=== PATIENT | female | born 1995 | race Caucasian/White ===

== ENCOUNTER 2017-06-07 11:50 | Emergency (ER) | payer OTHER, SELFPAY ==
[2017-06-07 14:09] VITALS: O2SAT 96
[2017-06-07] MEDS ORDERED: MOTRIN 600 MG PO ONE (14:12)
[2017-06-07] MEDS ORDERED: MOTRIN 600 MG ONE (14:13)
--- NOTE | 2017-06-07 14:19 | ERPHSYRPT ---
- History of Present Illness Time Seen by Provider: 06/07/17 14:09 Source: patient Physician History: CC: left ankle injury Hx: 21 y/o patient of Dr Barreto stepped on a child's toy at 5:30 AM today. Twisted left ankle and heard 2 pops. Pain in left foot and ankle so came to ER. No other injuries. No N/T/W. States not as has implant control. Pain moderate. Aching and sharp in nature. Allergies/Adverse Reactions: amoxicillin Allergy (Mild, Verified 01/29/16 10:39) Rash cephalexin monohydrate [From Keflex] Allergy (Mild, Verified 06/27/12 20:40) Rash Home Medications: Etonogestrel [Nexplanon] 68 mg SQ UD 06/07/17 [History] Hx Influenza Vaccination/Date Given: No Hx Pneumococcal Vaccination/Date Given: No - Review of Systems Constitutional: No Symptoms Musculoskeletal: Injury, Joint Pain (left foot/ankle), No Back Pain, No Neck Pain Neurological: No Focal Weakness, No Headache, No Parasthesia All Other Systems: Reviewed and Negative - Past Medical History Pertinent Past Medical History: No Neurological History: No Pertinent History ENT History: Other Cardiac History: No Pertinent History Respiratory History: No Pertinent History Endocrine Medical History: No Pertinent History Musculoskeletal History: No Pertinent History GI Medical History: No Pertinent History History: No Pertinent History Psycho-Social History: No Pertinent History Female Reproductive Disorders: No Pertinent History Other Medical History: MISC PREECLAMPSIA WITH - Past Surgical History Past Surgical History: Yes Neuro Surgical History: No Pertinent History Cardiac: No Pertinent History Respiratory: No Pertinent History Gastrointestinal: Other Genitourinary: No Pertinent History Musculoskeletal: No Pertinent History Female Surgical History: Other Other Surgical History: MYRINGOTOMY. D&C FOR MISCARRIAGE 2010. EGD - Social History Smoking Status: Never smoker Exposure to second hand smoke: Yes Drug Use: none Patient Lives Alone: No - Female History Hx Now: Yes - Nursing Vital Signs Nursing Vital Signs: Initial Vital Signs Temperature 98.7 F 06/07/17 14:09 Pulse Rate 100 H 06/07/17 14:09 Respiratory Rate 16 06/07/17 14:09 Blood Pressure 148/75 06/07/17 14:09 O2 Sat by Pulse Oximetry 96 06/07/17 14:09 Pain Scale Pain Intensity 8 - Physical Exam General Appearance: alert Eyes, Ears, Nose, Throat Exam: moist mucous membranes Neck Exam: non-tender, supple Cardiovascular/Respiratory Exam: regular rate/rhythm Neuro/Tendon Exam: normal sensation, normal motor functions Mental Status Exam: alert, oriented x 3, cooperative Skin Exam: warm, dry SpO2 Interpretation: normal SpO2: 96 Oxygen Delivery: Room Air Comments: tender left foot/ankle at deltoid ligament area. Some ecchymosis. Pulses intact. No fibular head or hip tenderness. - Course Nursing assessment & vital signs reviewed: Yes - Radiology Exams left foot/ankle X-ray Interpretation: Reviewed by me (no acute fracture. Possible avulsion lateral on prox foot but doubt significant) Ordered Tests: Active Orders 24 hr Category Date Time Status [facility] Care 06/07/17 15:21 Active Cold Application STAT Care 06/07/17 14:12 Active Splint STAT Care 06/07/17 15:21 Active ANKLE (3 VIEWS) Stat Exams 06/07/17 14:12 Ordered FOOT (MINIMUM 3 VIEWS) Stat Exams 06/07/17 14:12 Ordered Medication Summary Discontinued Medications Generic Name Dose Route Start Last Admin Trade Name Freq PRN Reason Stop Dose Admin Ibuprofen 600 mg 06/07/17 14:12 06/07/17 14:15 Motrin 600 Mg PO 06/07/17 14:13 600 mg STAT ONE Administration Ibuprofen Confirm 06/07/17 14:13 Motrin 600 Mg Administered 06/07/17 14:14 Dose 600 mg .ROUTE .STK-MED ONE - Progress Progress Note: 06/07/17 15:24 Pt will have kirk and air cast. She declines crutches and she will use ibuprofen. Advised follow up with Dr Barreto. Counseled pt/family regarding: diagnosis, need for follow-up, rad results - Departure Time of Disposition: 15:25 Departure Disposition: Home Clinical Impression: Left ankle sprain Qualifiers: Encounter type: initial encounter Involved ligament of ankle: deltoid ligament Qualified Code(s): S93.422A - Sprain of deltoid ligament of left ankle, initial encounter Condition: Stable Critical Care Time: No Referrals: MALORIE BARRETO [Primary Care Provider] - Instructions: Ankle Sprain Additional Instructions: SPRAINS/STRAINS/CONTUSIONS 1. Rest the affected area as much as possible for the next few days. 2. Apply ice to the affected area for 20-30 minutes at a time, several times a day. 3. If you receive an elastic wrap, wear it only while awake for comfort and support. Re-wrap the elastic wrap if it feels too tight or too loose. 4. If swelling is present, elevate the affected part above the level of the heart for at least 2 to 3 days. 5. Use splints, slings, or crutches as instructed. 6. Watch for severe swelling, coldness, numbness, and discoloration of the fingers and toes. See your family physician or return to the emergency department if any of these are noted. Kirk wrap, air cast, ice, elevate, limit walking. Follow up with Dr Barreto next week. Rx ibuprofen 600mg every 6 hours. Prescriptions: Ibuprofen 600 mg PO Q6H PRN PRN #20 tablet PRN Reason: Pain
[2017-06-07 15:44] VITALS: BP 129/63; PULSE 89
--- NOTE | 2017-06-07 20:47 | XRAY ---
Indication: Pain following tripping injury. Comparison: None 3 views of the left ankle obtained. No bony, articular, or soft tissue abnormalities.
--- NOTE | 2017-06-07 20:47 | XRAY ---
Indication: Pain following tripping injury. Comparison: None 3 nonweightbearing views of the left foot obtained. No bony, articular, or soft tissue abnormalities.
== END 2017-06-07 15:45 | disposition home or self-care (01) ==
LOC: ED 11:50
DX: S93.422A Sprain of deltoid ligament of left ankle, initial encounter (principal); X50.0XXA Overexertion from strenuous movement or load, initial encounter; W18.41XA Slipping, tripping and stumbling without falling due to stepping on object, initial encounter
CPT/HCPCS: 73610; 73630; 99284; A9270-GY

== ENCOUNTER 2017-12-22 12:27 | Day surgery (SDC) | payer SELFPAY ==
--- NOTE | 2017-12-11 12:01 | HP ---
DATE OF SURGERY: 12/22/2017 HISTORY OF PRESENT ILLNESS: The patient is a 22 year-old with right upper quadrant pain radiating to her back associated with nausea and vomiting. It has been going on for three years worse recently. Worse when she eats. HIDA scan had ejection fraction of 40%. Family history negative for peptic ulcer disease, celiac disease, inflammatory bowel disease. The patient originally said she had ultrasound that did not show any cholelithiasis but we have a report that shows cholelithiasis without cholecystitis on ultrasound in the past from two years ago. PAST MEDICAL HISTORY: No chronic illnesses. MEDICATIONS: Nexplanon control otherwise she denies any other medications. ALLERGIES: KEFLEX. PAST SURGICAL HISTORY: D&C. FAMILY HISTORY: Negative as mentioned above. SOCIAL HISTORY: No smoking or alcohol abuse. REVIEW OF SYSTEMS: Twelve systems reviewed per admission assessment. No chest pain or palpitations other systems negative or noncontributory as above and per preadmission questionnaire. PHYSICAL EXAMINATION: GENERAL: No acute distress. HEENT: Sclerae nonicteric. NECK: No JVD. CHEST: Clear to auscultation. CVS: Regular rate and rhythm. ABDOMEN: Soft. Right upper quadrant tenderness. No peritoneal signs. EXTREMITIES: No significant edema. NEURO: Alert, oriented, moving extremities symmetrically. No gross motor deficits noted. IMPRESSION: Symptomatic cholelithiasis probable chronic cholecystitis. I feel the patient will benefit from cholecystectomy. Risks and benefits explained in detail including but not limited to bleeding or infection, risk of trocar injury or hernia, small risk of bowel, bladder or blood vessel injury, small risk of bile leak, bile duct injury, retained stone or sludge possibly requiring further procedure either open or ERCP, general risk of anesthesia, deep venous thrombosis, pulmonary embolism, pneumonia but not limited. She understands all the above but not limited to, will proceed with laparoscopic cholecystectomy with possible open as an outpatient.
[~2017-12-22 12:27] MED LIST: CLINDAMYCIN-D5W 900 MG/50 ML*** 900 MG/50 ML BAG IV STA; Lactated Ringers 1,000 ML IV ONE; Levofloxacin 500MG/100ML D5W 500 MG/100 ML BAG IV ONE; Levofloxacin 500MG/100ML D5W 500 MG/100 ML BAG IV STA; Sensorcaine 0.25% 10 ML ONE
[2017-12-22] MEDS ORDERED: Zofran 4 MG/2 ML VIAL IV ONE (12:28)
[2017-12-22] MEDS ORDERED: BRIDION 200MG/2ML IV ONE (12:28)
[2017-12-22] MEDS ORDERED: Versed 2 MG/2 ML Injection IV ONE (12:28)
[2017-12-22] MEDS ORDERED: DIPRIVAN 200 MG/20 ML IV ONE (12:28)
[2017-12-22] MEDS ORDERED: TORAdol 30 mg Injection IJ ONE (12:28)
[2017-12-22] MEDS ORDERED: SUBLIMAZE 250 MCG/5 ML IV ONE (12:28)
[2017-12-22] MEDS ORDERED: Decadron 4 MG INJ IV ONE (12:28)
[2017-12-22] MEDS ORDERED: Zemuron 100 MG/10 ML IJ ONE (12:28)
[2017-12-22] MEDS ORDERED: Quelicin Fliptop 200 MG/10 ML IJ ONE (12:28)
[2017-12-22] MEDS ORDERED: Lactated Ringers 1,000 ML IV SCH (12:30)
[2017-12-22] MEDS ORDERED: SUBLIMAZE 100 MCG/2 ML ONE (15:40)
[2017-12-22] MEDS ORDERED: Zofran 4 MG/2 ML VIAL ONE (15:40)
[2017-12-22] MEDS ORDERED: MORPHINE SULFATE 10 MG/ML ONE (16:05)
[2017-12-22] MEDS ORDERED: NORCO 5/325 MG PO PRN (16:52)
[2017-12-22 17:34] VITALS: O2SAT 98
[2017-12-22 18:10] VITALS: BP 145/77; PULSE 83
--- NOTE | 2017-12-23 09:51 | OP ---
SURGERY DATE/TIME: 12/22/2017 1404 PREOPERATIVE DIAGNOSIS: Symptomatic cholelithiasis, chronic cholecystitis. POSTOPERATIVE DIAGNOSIS: Symptomatic cholelithiasis, chronic cholecystitis. PROCEDURE: Laparoscopic cholecystectomy. SURGEON: Dr. Indio Boucher. ANESTHESIA: General. ESTIMATED BLOOD LOSS: Minimal. INDICATIONS: As noted above. Risks and benefits explained in detail but not limited to and consent obtained. DESCRIPTION OF PROCEDURE AND FINDINGS: The patient was taken to the OR. She has had some symptoms for the past three years or so. She had a study that showed cholelithiasis a couple of years ago. General anesthesia was induced. Abdomen prepped and draped in the usual sterile fashion. A transverse incision made at the supraumbilical area. Fascia grasped and pulled upward. Veress needle inserted and tested with saline. Pneumoperitoneum accomplished insufflating opening pressure of 0-15. An 11 mm bladeless port and camera were inserted without difficulty followed by two - 5 mm right upper quadrant ports and a 5 mm epigastric port. The gallbladder grasped and retracted over the edge of the liver. It was quite distended. Dissection carried posterior, lateral to anterior fashion. It should be noted that she had small diameter, very short cystic duct connecting to the medium-size common bile duct. With all the chronic reaction around there this took quite some time slowly and carefully dissecting the infundibulum a little bit over towards the common duct at the Phrygian cap slowly and carefully staying directly on the Priest's pouch region slowly and carefully gently from the common duct staying directly on the gallbladder wall gently teasing it away from the common duct avoiding any energy source on the common duct itself. This took quite some time. Slow cystic artery isolated clipped and divided. Slowly and carefully this very short cystic duct stump was entering the common duct anterior-lateral side. Once the critical view is obtained both anterior and posteriorly the cystic duct stump was clipped x3 and divided in usual fashion. The gallbladder slowly and carefully dissected free from its dense almost concrete attachments to the liver bed staying directly on the gallbladder wall clipping additional oozing side branches off the cystic artery as necessary. It should be noted that one clip fire misfired and this appeared in the adipose tissue. Careful inspection for it did not reveal benign nonreactive clip. It was felt that it is not worthwhile to do any other procedures to retrieve it. Otherwise clipping additional oozing side branches off the cystic artery directly on the gallbladder wall in this area. Just prior to releasing from final attachments to the anterior edge of the liver, grasper tore a small, little hole in the gallbladder spilling a small amount of bile. There was no evidence of any stone spillage. Copious amount of irrigation irrigating until clear. The gallbladder released from final attachments to anterior edge of the liver. Just prior to doing so clips noted in place in cystic duct and cystic artery stumps. There were no signs of any active bleeding or bile leakage from the liver bed itself. Gallbladder released from final attachments anterior edge of liver placed in Pleatman sac, pulled up into the 10/11 supraumbilical port site. Decompressed of bile with Zohreh clamp retrieving moderate sized gallstones crushing and retrieving them finally allowing the gallbladder and Pleatman sac to be pulled free and passed off. Copious amount of irrigation irrigating until clear. Lateral to liver and subhepatic space and liver bed re-inspected. Clips noted to be in place in cystic duct and cystic artery stumps. No signs of any active bleeding or bile leakage. Clips noted to be in place in the cystic duct stump. Common duct visualized and protected. It was felt that given the extensive inflammatory reaction it would be safer to go head and leave a temporary RADHA drain to reduce the risk of collection formation at subhepatic space this was left 7 flat RADHA left in the subhepatic space out through a lateral port incision secured with PDS suture and placed to bulb suction. Copious amount of irrigation accomplished lateral to the liver and subhepatic space irrigating until clear. At this point fascial defect 10/11 site was closed with puncture closure device under direct vision with the camera with #1 Vicryl. Pneumoperitoneum decompressed. The wound was irrigated out. Skin incision closed with 4-0 Vicryl. Steri-Strips and sterile dressing applied. 0.25% Marcaine local had been injected along the skin incision fascial defect at the beginning of the procedure. Steri-Strips and sterile dressing applied. The patient tolerated the procedure well. There were no immediate complications. Findings were discussed with the family out in the waiting area.
== END 2017-12-22 18:05 | disposition home or self-care (01) ==
LOC: SDC 12:27
PROVIDERS: ATTEND Surgery
PROC: 0FT44ZZ Resection of Gallbladder, Percutaneous Endoscopic Approach (ICD-10-PCS; principal; 2017-12-22)
DX: K81.1 Chronic cholecystitis (principal)
CPT/HCPCS: 84703; 88304; J0330; J1100; J1885; J1956; J2250; J2270; J2405; J2704; J3010; A9270-GY

== ENCOUNTER 2020-02-14 10:38 | Emergency (ER) | payer OTHER ==
[2020-02-14 11:04] VITALS: O2SAT 97
--- NOTE | 2020-02-14 11:23 | ERPHSYRPT ---
- History of Present Illness Time Seen by Provider: 02/14/20 11:08 Source: patient Exam Limitations: other (Pt 19 months preg) Patient Subjective Stated Complaint: pt reports right lower abdominal, flank, and lower back pain starting approx 0200 today. pt reports pain is sharp in nature. pt states she is 19 weeks and was sent over by her OB for evaluation. pt denies any vaginal bleeding, cramping or discharge. pt denies urinary s/s. pt states healthy thus far and her next appointment with Dr Barreto is 03/01/20. Triage Nursing Assessment: pt is aox3, pupils perrl, afebrile, resps easy and non labored, cap refill < 3 seconds, radial pulses strong and equal, pt abd soft , tender to the RLQ, bowel sounds present normoactive x 4. pt skin pink warm dry. Physician History: 24 yo wf w R CVA pain>L CVA pain x 9 hours. Pain is dull/9 out of 10/better w sitting. She is 19 wks preg and denies vag bleeding/DC. Pt also denies trauma/N/ V/dysuria/hematuria/fever. ([id number]). Timing/Duration: other (9hrs) Method of Injury: unknown Quality: dull Back Pain Location: lumbar spine Severity of Pain-Max: moderate Severity of Pain-Current: moderate Modifying Factors: Improves With: other (better w sitting) Associated Symptoms: lower back pain, No fever, No chills, No sweating, No urinary incontinence, No loss of bowel control, No constipation, No nausea, No vomiting, No problems urinating, No light-headedness, No dizziness, No numbness in legs/feet, No weakness, No sensory/motor loss, No tingling in legs/feet, No muscle spasms Previous symptoms: no prior history Allergies/Adverse Reactions: cephalexin monohydrate [From Keflex] Allergy (Mild, Verified 02/14/20 11:05) Rash Home Medications: Vits W-Ca,Fe,FA(<1Mg) [] 1 each PO DAILY 02/14/20 [History] Hx Tetanus, Diphtheria Vaccination/Date Given: Yes Hx Influenza Vaccination/Date Given: Yes Hx Pneumococcal Vaccination/Date Given: No Immunizations Up to Date: Yes Travel Risk - International Travel Have you traveled outside of the country in past 3 weeks: No Have you or anyone close to you been diagnosed with or: No Do your reside in a community with a known COVID-19 case?: Yes If Yes where:: [facility] - Coronavirus Screening Has patient experienced Coronavirus symptoms: No - Review of Systems Constitutional: No Symptoms Eyes: No Symptoms Ears, Nose, & Throat: No Symptoms Respiratory: No Symptoms Cardiac: No Symptoms Abdominal/Gastrointestinal: Diarrhea, No Abdominal Pain, No Nausea, No Vomiting , No Constipation, No Hematemesis, No Hematochezia, No Melena, No Dysphagia Genitourinary Symptoms: No Symptoms Musculoskeletal: No Symptoms Skin: No Symptoms Neurological: No Symptoms Psychological: No Symptoms Endocrine: No Symptoms Hematologic/Lymphatic: No Symptoms Immunological/Allergic: No Symptoms - Past Medical History Pertinent Past Medical History: Yes Neurological History: No Pertinent History ENT History: Other Cardiac History: No Pertinent History Respiratory History: No Pertinent History Endocrine Medical History: Hypothyroidism Musculoskeletal History: No Pertinent History GI Medical History: No Pertinent History History: No Pertinent History Psycho-Social History: No Pertinent History Female Reproductive Disorders: No Pertinent History Other Medical History: MISCARRIAGE PREECLAMPSIA WITH - Past Surgical History Past Surgical History: Yes Neuro Surgical History: No Pertinent History Cardiac: No Pertinent History Respiratory: No Pertinent History Gastrointestinal: Cholecystectomy, Other Genitourinary: No Pertinent History Musculoskeletal: No Pertinent History Female Surgical History: Dilation & Curettage, Other Other Surgical History: MYRINGOTOMY. D&C FOR MISCARRIAGE 2010. EGD - Social History Smoking Status: Never smoker Exposure to second hand smoke: No Drug Use: none Patient Lives Alone: No - Female History Hx Last Menstrual Period: 10/08/19 Hx Now: Yes Expected Date of Delivery: 07/10/20 Gestational Age: 19 weeks - Nursing Vital Signs Nursing Vital Signs: Initial Vital Signs Temperature 97.8 F 02/14/20 10:50 Pulse Rate 94 H 02/14/20 10:50 Respiratory Rate 20 02/14/20 10:50 Blood Pressure 127/74 02/14/20 10:50 O2 Sat by Pulse Oximetry 97 02/14/20 10:50 Pain Scale Pain Intensity 5 - Physical Exam General Appearance: no apparent distress Eye Exam: PERRL/EOMI, eyes nml inspection Ears, Nose, Throat Exam: normal ENT inspection, TMs normal, pharynx normal, moist mucous membranes Neck Exam: normal inspection, non-tender, supple, full range of motion, No meningismus, No Brudzinski Respiratory Exam: normal breath sounds, lungs clear, airway intact, No respiratory distress Cardiovascular Exam: regular rate/rhythm, normal heart sounds, normal peripheral pulses, No murmur Gastrointestinal Exam: soft, normal bowel sounds, No tenderness, No distention Pelvic Exam: not done Rectal Exam: deferred Back Exam: CVA tenderness Extremity Exam: normal inspection, normal range of motion Neurologic Exam: alert, oriented x 3, cooperative, sawdust drier II-XII nml as tested, normal mood/affect Skin Exam: normal color, warm, dry Lymphatic Exam: adenopathy SpO2 Interpretation: normal SpO2: 97 O2 Delivery: Room Air - Course Nursing assessment & vital signs reviewed: Yes Ordered Tests: Active Orders 24 hr Category Date Time Status IV Insertion STAT Care 02/14/20 11:01 Active UA W/RFX UR CULTURE Stat Lab 02/14/20 11:24 Completed Lab/Rad Data: Laboratory Results 02/14/20 Range/Units 11:24 Urine Color YELLOW (YELLOW) Urine Appearance SLIGHTLY CLOUDY (CLEAR) Urine pH 6.0 (5-6) Ur Specific [place] 1.027 (1.005-1.025) Urine Protein 30 (Negative) Urine Ketones TRACE (NEGATIVE) Urine Blood NEGATIVE (0-5) Low/ul Urine Nitrite NEGATIVE (NEGATIVE) Urine Bilirubin NEGATIVE (NEGATIVE) Urine Urobilinogen 2 (0-1) mg/dL Ur Leukocyte Esterase NEGATIVE (NEGATIVE) Urine WBC (Auto) 3-5 (0-5) /HPF Urine RBC (Auto) 0-2 (0-2) /HPF U Epithel Cells (Auto) RARE (FEW) /HPF Urine Bacteria (Auto) RARE (NEGATIVE) /HPF Urine Mucus (Auto) MODERATE (NEGATIVE) /HPF Urine Culture Reflexed NO (NO) Urine Glucose NEGATIVE (NEGATIVE) mg/dL - Progress Progress: improved Progress Note: 02/14/20 11:53 Pt w 3-5wbc and rare bacteria, so will treat w macrobid due to pregnanct. Pt given 1gm po tylenol. Discharged to f/u w Ob. - Departure Departure Disposition: Home, In-patient Admission Clinical Impression: Urinary tract infection Condition: Stable Critical Care Time: No Referrals: MALORIE BARRETO [Primary Care Provider] - Instructions: Flank Pain, Urinary Tract Infections in Additional Instructions: Follow up with Ob in 1 day Start Macrobid twice a sday for 1 week Return to ER for increasing pain or temperature greater than 100.5 Prescriptions: Nitrofurantoin Monohyd/M-Cryst [Macrobid 100 mg Capsule] 100 mg PO BID #14 capsule
[2020-02-14 11:26] VITALS: BP 122/59
[2020-02-14 11:36] LABS: Appearance SLIGHTLY CLOUDY (CLEAR); Bacteria RARE /HPF (NEGATIVE); Bilirubin NEGATIVE (NEGATIVE); Blood NEGATIVE Ery/ul (0-5); Epithelial Cells RARE /HPF (FEW); Glucose NEGATIVE (NEGATIVE); Ketones TRACE (NEGATIVE); Leukocyte Esterase NEGATIVE (NEGATIVE); Mucus MODERATE /HPF (NEGATIVE); Nitrite NEGATIVE (NEGATIVE); Protein,Urine Dip 30 (Negative); RBC 0-2 /HPF (0-2); Specific Gravity 1.027 (1.005-1.025); Urobilinogen 2 mg/dL (0-1)
[2020-02-14] MEDS ORDERED: TYLENOL 325 MG PO STA (11:52)
[2020-02-14] MEDS ORDERED: TYLENOL 325 MG ONE (11:55)
[2020-02-14 11:58] VITALS: PULSE 93
== END 2020-02-14 12:05 | disposition home or self-care (01) ==
LOC: ED 10:38
DX: O23.42 Unspecified infection of urinary tract in pregnancy, second trimester (principal); Z3A.19 19 weeks gestation of pregnancy
CPT/HCPCS: 36000; 81001; 99284; A9270-GY

== ENCOUNTER 2020-06-26 11:08 | Inpatient (IN) | payer OTHER ==
[2020-06-26] MEDS ORDERED: PITOCIN 30 UNITS/ LR 500 ML 30 UNITS/500 ML IV.SOLN. IV SCH ×3 (16:30→17:00)
[2020-06-26] MEDS ORDERED: BRETHINE 1 MG/ML SQ PRN (17:00)
[2020-06-26] MEDS ORDERED: XYLOCAINE 1% HCL 20 ML MDV IJ PRN (17:00)
[2020-06-26] MEDS ORDERED: Cervidil 10 MG VAG SCH (18:00)
[2020-06-26 20:25] LABS: Absolute Neutrophil Ct (ANC) 5.98 (1.4-6.9); BASOPHIL % 0.4 % (0.0-0.4); Basophil (Absolute #) 0.03 (0-0.4); Eosinophil % 0.3 % (0.00-5.0); Eosinophil (Absolute #) 0.02 (0-0.5); Hematocrit 34.1 % (35-47); Hemoglobin 11.1 gm/dl (12.0-16.0); Lymphocyte (Absolute #) 1.13 (1.0-4.6); Lymphocytes % 14.8 % (24.0-44.0); Mean Cell Volume 87.2 fl (78-100); Mean Corpuscular Hemoglobin 28.4 pg (26-32); Mean Corpuscular Hgb Concent. 32.6 g/dl (32-36); Mean Platelet Volume 12.1 fl (7.5-11.0); Monocyte (Absolute #) 0.46 (0.0-1.3); Neutrophil % 78.5 % (36.0-66.0); Platelet Count 201 K/mm3 (150-450); Red Blood Count 3.91 M/mm3 (4.1-5.4); Red Cell Distribution Width 13.7 % (11.5-14.0); White Blood Count 7.6 K/mm3 (4.0-10.5)
[2020-06-26] MEDS: Lactated Ringers 1,000 ML IV SCH (20:30)
[2020-06-26 20:31] LABS: Amphetamine,Urine NEGATIVE (NEGATIVE); Barbiturate,Urine NEGATIVE (NEGATIVE); Benzodiazepine,Urine NEGATIVE (NEGATIVE); Cocaine,Urine NEGATIVE (NEGATIVE); Methadone,Urine NEGATIVE (NEGATIVE); Opiate,Urine NEGATIVE (NEGATIVE); PCP,Urine NEGATIVE (NEGATIVE); THC,Urine NEGATIVE (NEGATIVE)
[2020-06-27] MEDS ORDERED: Zofran 4 MG/2 ML VIAL IV PRN (01:54)
[2020-06-27] MEDS ORDERED: OB EPIDURAL NAROPIN/SUFENTANIL IN NACL EPIDURAL PRN (01:54)
[2020-06-27] MEDS ORDERED: TYLENOL EXTRA STRENGTH 500 MG PO PRN (01:54)
[2020-06-27] MEDS ORDERED: Ephedrine Sulfate 50 MG/ML IV PRN (01:54)
[2020-06-27] MEDS ORDERED: Nubain 10 MG/ML IV PRN (01:54)
[2020-06-27] MEDS ORDERED: TYLENOL 325 MG PO PRN (13:31)
[2020-06-27] MEDS: Lactated Ringers 1,000 ML IV SCH ×2 (13:49→17:57)
[2020-06-27] MEDS ORDERED: SUBLIMAZE 100 MCG/2 ML ONE (18:33)
[2020-06-27] MEDS ORDERED: LANSINOH 40 GM TOP PRN (19:49)
[2020-06-27] MEDS ORDERED: NORCO 5/325 MG PO PRN (19:49)
[2020-06-27] MEDS ORDERED: M-M-R II Vaccine With Diluent SQ ONE (19:49)
[2020-06-27] MEDS ORDERED: Mylicon 80MG PO PRN (19:49)
[2020-06-27] MEDS ORDERED: TUCKS TP PRN (19:49)
[2020-06-27] MEDS ORDERED: BENADRYL 25 MG CAPSULE PO PRN (21:22)
[2020-06-27] MEDS: Colace 100 MG PO SCH (23:55)
[2020-06-28] MEDS: MOTRIN 400 MG PO PRN ×2 (05:41→13:54)
[2020-06-28 08:06] LABS: Absolute Neutrophil Ct (ANC) 4.83 (1.4-6.9); BASOPHIL % 0.3 % (0.0-0.4); Basophil (Absolute #) 0.02 (0-0.4); Eosinophil % 0.4 % (0.00-5.0); Eosinophil (Absolute #) 0.03 (0-0.5); Hematocrit 32.7 % (35-47); Hemoglobin 10.6 gm/dl (12.0-16.0); Lymphocyte (Absolute #) 1.85 (1.0-4.6); Mean Cell Volume 87.9 fl (78-100); Mean Corpuscular Hemoglobin 28.5 pg (26-32); Mean Corpuscular Hgb Concent. 32.4 g/dl (32-36); Mean Platelet Volume 12.3 fl (7.5-11.0); Monocyte (Absolute #) 0.67 (0.0-1.3); Monocytes % 9.1 % (0.0-12.0); Neutrophil % 65.2 % (36.0-66.0); Platelet Count 181 K/mm3 (150-450); Red Blood Count 3.72 M/mm3 (4.1-5.4); White Blood Count 7.4 K/mm3 (4.0-10.5)
[2020-06-28] MEDS: FERREX 150 PO SCH (11:06)
[2020-06-28] MEDS: Colace 100 MG PO SCH ×2 (11:06→22:47)
[2020-06-29 00:58] VITALS: O2SAT 98
[2020-06-29] MEDS: MOTRIN 400 MG PO PRN ×2 (01:18→12:55)
--- NOTE | 2020-06-29 09:03 | PCM.DS ---
Discharge Summary Date of Admission: 06/27/20 17:31 Admitting Physician: MALORIE CHACON Primary Care Provider: MALORIE CHACON Allergies Allergies cephalexin monohydrate [From Keflex] Allergy (Mild, Verified 02/14/20 11:05) Rash Hospital Summary - Hospital Course Hospital Course: Pt came in as 24 yo at 38w for IOL due to pre-eclampsia. She had cervadil overnight, then wanted to wait on AROM so her SO could be present at delivery. After he arrived, I came and did AROM; cervix was 4 cm. She had epidural and after that dilated very quickly and delivered a viable 7lb 1oz just before I arrived. Baby and mom are doing great; he is some, although she has concerns about her milk supply and has pumped and given him formula. Taking ibuprofen for pain intermittently. She did not have any vaginal lacerations. Denies dizziness. Bleeding without clots. Pt's BP have all been unconcerning; some in the 110s systolic and some into the 130s in the past 24 hours. She will be discharged to home; baby and mom need to f/u in 1 week with me. - Vitals & Intake/Output Vital Signs: Vital Signs Temperature 98.1 F 06/29/20 00:00 Pulse Rate 73 06/29/20 00:00 Respiratory Rate 20 06/29/20 00:00 Blood Pressure 128/71 06/29/20 00:00 O2 Sat by Pulse Oximetry 98 06/29/20 00:00 Intake & Output: Intake & Output 06/26/20 06/27/20 06/28/20 06/29/20 11:59 11:59 11:59 11:59 Intake Total 2200 1300 200 Balance 2200 1300 200 Weight 280 kg 127.006 kg - Lab Result Diagrams: 06/28/20 04:30 Lab Results-Last 24 Hrs: Lab Results-Last 24 Hours 06/26/20 Range/Units Unknown Rubella IgG Antibody 1.26 (Immune >0.99) index Discharge Exam General Appearance: no apparent distress, alert Neurologic Exam: oriented x 3, cooperative Eye Exam: eyes nml inspection Ears, Nose, Throat Exam: moist mucous membranes Neck Exam: normal inspection Respiratory Exam: normal breath sounds, lungs clear, No crackles/rales, No rhonchi, No wheezing Cardiovascular Exam: regular rate/rhythm, normal heart sounds, No murmur Gastrointestinal/Abdomen Exam: soft, normal bowel sounds, other (fundus firm inferior to umbilicus), No tenderness, No distention, No mass, No guarding, No rebound Extremity Exam: normal inspection, No pedal edema, No swelling Skin Exam: normal color, warm, dry, No rash Final Diagnosis/Problem List - Final Discharge Diagnosis/Problem (1) Vaginal delivery Current Visit: No Status: Acute Assessment & Plan: PPD #2. Home today with baby. Code(s): O80 - ENCOUNTER FOR FULL-TERM UNCOMPLICATED DELIVERY (2) Pre-eclampsia Current Visit: Yes Status: Acute Assessment & Plan: Doing well. RTC 1 week with me for recheck. Code(s): O14.90 - UNSPECIFIED PRE-ECLAMPSIA, UNSPECIFIED TRIMESTER - Discharge Disposition: Home, Self-Care Condition: Good Prescriptions: New Ferrous Sulfate 325 mg [Feosol 325 mg] 325 mg PO DAILY #30 tablet Ibuprofen 600 mg PO QID PRN #35 tablet PRN Reason: Pain Continue Vits W-Ca,Fe,FA(<1Mg) [] 1 each PO DAILY Discontinued Nitrofurantoin Monohyd/M-Cryst [Macrobid 100 mg Capsule] 100 mg PO BID #14 capsule Follow up with: MALORIE CHACON [Primary Care Provider] - 1 Week
[2020-06-29] MEDS: FERREX 150 PO SCH (11:22)
[2020-06-29] MEDS: Colace 100 MG PO SCH (11:25)
[2020-06-29 19:26] VITALS: BP 157/86; PULSE 88
== END 2020-06-29 18:57 | disposition home or self-care (01) | DRG 807 ==
LOC: OB 17:31 → OBSVTOIN 06-27 17:31
PROVIDERS: ADMIT Family Medicine; ATTEND Family Medicine
PROC: 10E0XZZ Delivery of Products of Conception, External Approach (ICD-10-PCS; principal; 2020-06-27)
DX: O14.94 Unspecified pre-eclampsia, complicating childbirth (principal); Z37.0 Single live birth; Z3A.38 38 weeks gestation of pregnancy
CPT/HCPCS: 36415; 80307; 81050; 84156; 85025; 86762; G0378; J2405; J2590; J2795; J3010; A9270-GY

== ENCOUNTER 2020-10-31 06:52 | Day surgery (SDC) | payer OTHER ==
[2020-10-31] MEDS ORDERED: CLINDAMYCIN-D5W 900 MG/50 ML*** 900 MG/50 ML BAG IV STA (07:04)
[2020-10-31] MEDS ORDERED: Lactated Ringers 1,000 ML IV ONE (07:29)
[2020-10-31] MEDS ORDERED: CLINDAMYCIN-D5W 900 MG/50 ML*** 900 MG/50 ML BAG IV ONE (07:29)
[2020-10-31] MEDS ORDERED: Lactated Ringers 1,000 ML IV SCH (07:30)
[2020-10-31] MEDS ORDERED: Versed 2 MG/2 ML Injection IV ONE (07:33)
[2020-10-31] MEDS ORDERED: Sensorcaine 0.25% 10 ML ONE (10:04)
[2020-10-31] MEDS ORDERED: Quelicin Fliptop 200 MG/10 ML ONE (10:44)
[2020-10-31] MEDS ORDERED: Versed 2 MG/2 ML Injection ONE (10:44)
[2020-10-31] MEDS ORDERED: SUBLIMAZE 100 MCG/2 ML ONE ×2 (10:44→11:35)
[2020-10-31] MEDS ORDERED: DIPRIVAN 200 MG/20 ML IV ONE (10:44)
[2020-10-31] MEDS ORDERED: Zemuron 100 MG/10 ML ONE (10:45)
[2020-10-31] MEDS ORDERED: Decadron 4 MG INJ ONE (11:04)
[2020-10-31] MEDS ORDERED: Zofran 4 MG/2 ML VIAL ONE (11:04)
[2020-10-31] MEDS ORDERED: MORPHINE SULFATE 10 MG/ML ONE (11:35)
[2020-10-31] MEDS ORDERED: Compazine 10 MG/2 ML ONE (11:43)
[2020-10-31] MEDS ORDERED: BRIDION 200MG/2ML IV ONE (11:48)
[2020-10-31 12:41] VITALS: O2SAT 99
[2020-10-31 14:11] VITALS: BP 149/82; PULSE 80
[2020-10-31 14:21] LABS: Appearance CLEAR (CLEAR); Bilirubin NEGATIVE (NEGATIVE); Blood NEGATIVE Ery/ul (0-5); Glucose NEGATIVE (NEGATIVE); Ketones NEGATIVE (NEGATIVE); Leukocyte Esterase NEGATIVE (NEGATIVE); Nitrite NEGATIVE (NEGATIVE); Protein,Urine Dip NEGATIVE (Negative); Specific Gravity 1.006 (1.005-1.025); Urobilinogen NEGATIVE mg/dL (0-1)
--- NOTE | 2020-11-01 09:23 | OP ---
SURGERY DATE/TIME: 10/31/2020 1047 PREOPERATIVE DIAGNOSIS: Multiparity desiring tubal sterilization. POSTOPERATIVE DIAGNOSIS: Multiparity desiring tubal sterilization. PROCEDURE: Laparoscopic tubal sterilization via Falope ring application. SURGEON: Lobo Dodson D.O. TRANSITION ADVISOR: Akanksha Hall, surgical instrument technician. ANESTHESIA: General. ESTIMATED BLOOD LOSS: Minimal. COMPLICATIONS: None. INDICATIONS: The risks, benefits, indications and alternatives of the procedure were reviewed with the patient prior to the procedure. The patient understood the risk of infection, bleeding, bowel injury, bladder injury, ureteral injury, possible , ectopic , possible irregular bleeding, pelvic infection and thromboembolic disorder associated with this procedure however desires to have this procedure as a possible means to alleviate her current medical condition. DESCRIPTION OF PROCEDURE AND FINDINGS: At this point the patient is taken to the operating room, given general sedation, placed in a dorsal lithotomy position, prepped and draped in the usual sterile fashion. A weighted speculum is then placed in the patient's vagina and the anterior lip of the cervix was grasped with a single tooth tenaculum. Endocervical dilators were advanced through the endocervical canal as a means to dilate the cervix and at this point a uterine manipulator was then placed in through endocervical canal as a means to manipulate the uterus. Attention was then turned to the patient's abdomen where a 5 mm skin incision is made approximately 2 cm above the umbilicus where a 5 mm trocar and sleeve were advanced under direct visualization where pneumoperitoneum was obtained with 4 liters of CO2 gas. An additional incision was made approximately 2 cm above the symphysis pubis where an 8 mm trocar and sleeve were advanced under direct visualization as well. Survey of the patient's pelvic anatomy revealed entirely normal anatomy. From this point the uterus is lifted with the uterine manipulator and the right fallopian tube was identified and on the isthmus region the Falope ring applicator was then placed on its region where a knuckle of tube was grasped and the Falope ring was disengaged on the tube with excellent hemostasis noted. The same procedure was performed on the left side of the tube on the isthmus region where the Falope ring applicator was placed and Falope ring was disengaged and applied where a knuckle of tube was applied to the tube and good hemostasis was noted. From this point all instruments were then removed from the patient's abdominal region and the incision was closed with 4-0 Monocryl suture with subsequent Dermabond on the skin. From this point the patient was then taken out of anesthesia and was then taken to the recovery room in stable condition.
== END 2020-10-31 13:25 | disposition home or self-care (01) ==
LOC: SDC 06:52
PROVIDERS: ATTEND Obstetrics & Gynecology
DX: Z30.2 Encounter for sterilization (principal)
CPT/HCPCS: 81001; 84703; 87086; J0330; J1100; J2250; J2270; J2405; J2704; J3010